=== PATIENT | male | born 1965 | race Caucasian/White ===

== ENCOUNTER 2020-08-09 11:36 | Emergency (ER) | payer OTHER, SELFPAY ==
[2020-08-09 11:42] VITALS: BP 162/105; PULSE 78; RESP 16; TEMP 36.7; O2SAT 99
[2020-08-09 11:47] VITALS: BP 162/105; PULSE 78; RESP 16; TEMP 36.7; O2SAT 99
--- NOTE | 2020-08-09 11:53 | ED.BACK ---
HPI - Back Pain/Injury General Chief Complaint: Back Pain/Injury Stated Complaint: BACK PAIN Time Seen by Provider: 08/09/20 11:50 Source: patient and RN notes reviewed Mode of arrival: ambulatory Limitations: no limitations History of Present Illness HPI Narrative: 54-year-old male presents to the [facility] with complaints of right lower back pain. States that he was changing a tire that 9 days ago when he went to try to hurry up and finish tightening the tire up when he felt a pull in his right lower back. History of the same muscle pull in the past and states he was given muscle relaxers, pain medicines and anti-inflammatories as well as having to be referred to physical therapy. Patient denies any loss or retention of bowel or bladder. No midline tenderness. No abdominal pain or chest pain. No nausea vomiting or diarrhea. MD elicited complaint: back injury (twisting injury) Pertinent past history: prior back pain Timing: constant Severity: moderate Similar Symptoms Previously: Yes Related Data Home Medications Medication Instructions Recorded Confirmed albuterol sulfate INHALATION 08/09/20 [id number] INHALATION 08/09/20 [Trelegy Ellipta] Allergies Allergy/AdvReac Type Severity Reaction Status Date / Time NKDA Allergy Mild Uncoded 08/18/09 18:36 Review of Systems Review of Systems: All systems reviewed & are unremarkable except as noted in HPI and below Constitutional: Constitutional: Reports no additional constitutional complaints, Denies chills and Denies fever(s) Eyes: Eyes: Reports no additional eye complaints ENT: Reports system reviewed and no additional complaints, except as documented Cardiovascular: Cardiovascular: Reports no additional cardiovascular complaints Respiratory: Respiratory: Reports no additional respiratory complaints, Denies cough, Denies dyspnea and Denies wheezing Gastrointestinal: Gastrointestinal: Reports no additional gastrointestinal complaints, Denies abdominal pain, Denies nausea and Denies vomiting Genitourinary: Genitourinary: Denies urinary frequency and Denies urinary incontinence Musculoskeletal: Musculoskeletal: Reports back pain (Right lower, muscle spasming) Integumentary/Breasts: Skin/Breast: Reports system reviewed and no additional complaints, except as docu, Denies erythema and Denies rash Neurologic: Reports system reviewed and no additional complaints, except as documented, Denies dizziness, Denies headache(s), Denies focal weakness, Denies numbness and Denies weakness Psychiatric: Psychiatric: Reports no additional psychiatric complaints PMFSH Comments At the time of my signature, I reviewed and agree with the nursing past medical, surgical, social, and family history. There is no relevant family history pertinent to the patient complaint. Exam Const: General: healthy appearing, no acute distress and alert Nutritional Appearance: well nourished Orientation/consciousness: patient oriented x3 HENMT: Head: normal to inspection Neck: Neck: normal visual inspection, no lymphadenopathy and no meningeal signs Chest: Chest palpation & inspection: normal inspection of the chest Resp: Effort & Inspection: normal respiratory effort and no use of accessory muscles Auscultation: clear to auscultation bilaterally, no crackles, no rales, no rhonchi and no wheezes Cardio: Rate: regular rate Rhythm: regular rhythm GI: Inspection: normal to inspection GI Palp: No abdominal tenderness Back/Spine/Pelvis: Cervical Spine: normal cervical lordosis, cervical ROM normal, No cervical muscular tenderness, No pain with cervical ROM and No Cervical spine tenderness Thoracic/Lumbar Spine: No thoracic spinal tenderness and No lumbar spinal tenderness Pelvis: no pain with anterior-posterior compression, no pain with lateral compression, no buttock tenderness, no buttock swelling and no unilateral elevation of iliac crest Back/spine/pelvis image: 1.
[2020-08-09 13:01] VITALS: BP 160/105
== END 2020-08-09 12:05 | disposition home or self-care (01) ==
PROVIDERS: Emergency Provider Nurse Practitioner; PCP Internal Medicine Infectious Disease
DX: S39.012A Strain of muscle, fascia and tendon of lower back, initial encounter (principal); X50.0XXA Overexertion from strenuous movement or load, initial encounter; J45.909 Unspecified asthma, uncomplicated
CPT/HCPCS: 99213; G0463

== ENCOUNTER 2023-05-07 15:51 | Outpatient (CLI) | payer OTHER, SELFPAY ==
--- NOTE | ~2023-05-07 | XR_ITS ---
EXAMINATION: XR knee RT min 4V DATE: 05/07/2023 16:35 INDICATION: Right knee pain. TECHNIQUE: 5 views of right knee including standing views were obtained. COMPARISON: None. FINDINGS: Bone alignment is normal. No fracture. There is mild osteoarthritis of patellofemoral wilma rtment. No knee joint effusion. IMPRESSION: 1. Mild right knee osteoarthritis. Reviewed, dictated and finalized at location [facility] [facility]
== END 2023-05-07 15:52 | disposition home or self-care (01) ==
LOC: ANHIMG 15:53
PROVIDERS: PCP Internal Medicine Infectious Disease; Visit Provider Orthopaedic Surgery
DX: M17.11 Unilateral primary osteoarthritis, right knee (principal)
CPT/HCPCS: 73564